=== PATIENT | female | born 1980 | race Caucasian/White ===

== ENCOUNTER 2018-08-05 17:45 | Emergency (ER) | payer SELFPAY ==
[~2018-08-05] VITALS: Ht 162.6 cm; Wt 71.0 kg
[2018-08-05] MEDS ORDERED: LIDOCAINE HCL/PF 1% 10 MG/ML 5ML VIAL IJ ONE (19:15)
[2018-08-05] MEDS ORDERED: HYDROCODONE/ACETAMINOPHEN 5/325MG TABLET PO ONE (19:15)
[2018-08-05] MEDS ORDERED: TETANUS, DIPHTHERIA, PERTUSSIS VAC/PF 0.5ML (>7YR OLD) IM ONE (19:15)
[2018-08-05] MEDS ORDERED: AMOXICILLIN/POTASSIUM CLAVULANATE 875/125MG TAB PO ONE (19:30)
[2018-08-05 20:02] VITALS: BP 135/99
== END 2018-08-05 21:20 | disposition left against medical advice (07) ==
LOC: ER 17:45
DX: S01.05XA Open bite of scalp, initial encounter (principal); S01.85XA Open bite of other part of head, initial encounter; Y04.1XXA Assault by human bite, initial encounter; Y93.01 Activity, walking, marching and hiking; Y92.480 Sidewalk as the place of occurrence of the external cause; F17.210 Nicotine dependence, cigarettes, uncomplicated
CPT/HCPCS: 99283

== ENCOUNTER 2018-10-20 22:39 | Day surgery (SDC) | payer MEDICAID ==
[~2018-10-20] VITALS: Ht 162.6 cm; Wt 59.0 kg
[2018-10-20] MEDS ORDERED: ACETAMINOPHEN 325MG TABLET PO PRN (23:30)
[2018-10-20 23:58] LABS: BASOPHILS % 0.3 % (0.0-2.0); EOSINOPHILS % 1.3 % (0.0-5.0); HEMATOCRIT. 37.4 % (36.0-48.0); HEMOGLOBIN. 12.8 g/dL (12.0-16.0); LYMPHOCYTES % 15.4 % (20.0-50.0); MEAN CORPUSCULAR HEMOGLOBIN 33.5 pg (28.0-32.0); MEAN CORPUSCULAR VOLUME 97.7 fL (81.0-99.0); MEAN PLATELET VOLUME 8.3 fl (7.4-10.4); MONOCYTES % 6.9 % (2.0-8.0); NEUTROPHILS % 76.1 % (40.0-76.0); PLATELET 201 x1000/uL (130-400); RED BLOOD CELL COUNT 3.82 mill/uL (4.2-5.4); RED CELL DISTRIBUTION WIDTH 12.6 % (11.6-14.6)
[2018-10-21 00:02] LABS: CHLORIDE 109 mEq/L (98-107)
[2018-10-21 00:22] LABS: PROTHROMBIN TIME 10.2 sec (9.6-11.0)
[2018-10-21 00:26] LABS: B-HCG QUANTITATIVE 2676 mIU/mL (<3)
[2018-10-21] MEDS ORDERED: DEXT 5%/LR + PITOCIN 20UNITS/L 1,000 ML IV ONE (01:45)
[2018-10-21 01:49] LABS: CLARITY URINE TURBID (CLEAR); COLOR URINE YELLOW (YELLOW); KETONES URINE NEGATIVE (NEGATIVE); LEUKOCYTE ESTERASE URINE 1+ (NEGATIVE); NITRITE URINE POSITIVE (NEGATIVE); OCCULT BLOOD URINE 3+ (NEGATIVE); PROTEIN URINE 2+ (NEGATIVE); SPECIFIC GRAVITY URINE 1.029 (1.005-1.030)
[2018-10-21] MEDS ORDERED: CEFAZOLIN 1000MG PREMIX 50 ML IV ONE (03:45)
[2018-10-21] MEDS ORDERED: MIDAZOLAM HCL 2 MG/2 ML VIAL ONE (07:23)
[2018-10-21] MEDS ORDERED: PROPOFOL 200MG/20ML VIAL IV ONE (07:23)
[2018-10-21] MEDS ORDERED: ROCURONIUM BROMIDE 10MG/ML VIAL 5ML IV ONE (07:23)
[2018-10-21] MEDS ORDERED: GLYCOPYRROLATE 0.2 MG/ML 2ML VIAL ONE ×2 (07:23→07:52)
[2018-10-21] MEDS ORDERED: OXYTOCIN 10 UNITS/ML 1ML ONE ×2 (07:41→07:44)
[2018-10-21] MEDS ORDERED: LIDOCAINE HCL/PF 1% 10 MG/ML 5ML VIAL ONE (07:41)
[2018-10-21] MEDS ORDERED: NEOSTIGMINE METHYLSULFATE 1MG/ML 10 ML VIAL ONE (07:52)
[2018-10-21] MEDS ORDERED: RHO(D) IMMUNE GLOBULIN 300 MCG/SYR IM ONE ×2 (08:30)
[2018-10-21] MEDS ORDERED: IBUPROFEN 800MG TABLET PO ONE (08:30)
[2018-10-21] MEDS ORDERED: IBUPROFEN 800MG TABLET PO SCH (09:53)
[2018-10-21 10:14] VITALS: BP 117/64
== END 2018-10-21 08:15 | disposition home or self-care (01) ==
LOC: ER 22:39 → ENRESERV 10-21 07:13 → CANRESERV 10-21 07:13 → OR 10-21 07:16 → CANBEDREQ 10-21 13:19
PROVIDERS: ATTEND Obstetrics & Gynecology
DX: O03.4 Incomplete spontaneous abortion without complication (principal); N83.201 Unspecified ovarian cyst, right side; F17.210 Nicotine dependence, cigarettes, uncomplicated; Z3A.11 11 weeks gestation of pregnancy
CPT/HCPCS: 36415; 59812; 76801; 76817; 80053; 81003; 81025; 84702; 85025; 85610; 86850; 86900; 86901; 88305; 96365; 96367; 99284; J0690; J2250; J2590; J2704; J2710; J3490